=== PATIENT | female | born 2000 | race Caucasian/White ===

== ENCOUNTER 2022-01-11 14:49 | Emergency (ER) | payer SELFPAY ==
[~2022-01-11] VITALS: Ht 160 cm; Wt 62.0 kg
[2022-01-11 14:59] VITALS: BP 117/70
== END 2022-01-11 17:31 | disposition home or self-care (01) ==
LOC: ER 14:49
DX: B34.9 Viral infection, unspecified (principal); Z20.822 Contact with and (suspected) exposure to COVID-19; Z98.890 Other specified postprocedural states
CPT/HCPCS: 71045; 81025; 87426; 99284